=== PATIENT | male | born 1995 | race Caucasian/White ===

== ENCOUNTER 2019-01-07 04:37 | Emergency (ER) | payer SELFPAY ==
[2014-08-19 14:15] VITALS: Wt 81.6 kg
[~2019-01-07 04:37] MED LIST: BENZ30CR TP; DULO60CA56 PO; HYDR-4225 PO; MELO-205 PO; NAPR220C12 PO; PROM-110 PO
[2019-01-07 04:41] VITALS: BP 147/93
--- NOTE | 2019-01-07 04:53 | ER Report ---
History and Physical Time Seen By MD: 04:53 Hx. of Stated Complaint: pt wants to detox. uses meth. thinks he got a bad batch last night. doesn't think he's had any drugs that he knows of since last night HPI/ROS CHIEF COMPLAINT: wants to detox, meth use, thinks his house guests are trying to kill him HISTORY OF PRESENT ILLNESS: This is a 23 year old male. He uses meth. Has been using over the weekend for about 3 or 4 days. Has guests at his house that he thinks are trying to kill him and frame it as a suicide. He thinks they may have slipped him something else. He denies other drugs, but then admits to occasional marijuana. He smokes the meth. He uses tobacco. Will have several day binges of alcohol every few weeks, has been binging this weekend. He denies other health problems. He thinks something was slipped to him because he feels more high than usual, and knows how the amount of meth he used should make him feel. Allergies: Coded Allergies: haloperidol (Verified Allergy, Intermediate, 01/07/19) lockjaw Home Meds Discontinued Scripts Hydroxyzine Hcl (HYDROXYZINE HCL) 25 Mg Tablet, 1-2 TAB PO Q6H PRN for ANXIETY, #30 Prov:STAN TENORIO DO 10/26/17 Reviewed Nurses Notes: Yes Hx Smoking: Yes Smoking Status: Current: Every Day Smoker Exposure to Second Hand Smoke?: Yes Hx Substance Use Disorder: Yes (meth) Hx Alcohol Use: Yes (trying to quit) Constitutional Vital Sign - Last 24 Hours 01/07/19 04:41 Temp 98.5 Pulse 118 Resp 16 B/P (MAP) 147/93 Pulse Ox 95 O2 Delivery Room Air Physical Exam General Appearance: The patient is alert. No acute distress. Anxious. Eyes: Pupils are equal, round. Reactive to light. He has some injection, no pallor or icterus. Extraocular movements are intact. ENT: Mucous membranes are moist. Normal oral mucosa. Posterior oropharynx is normal. Neck: Supple and non tender. Respiratory: Lungs are clear to auscultation. Cardiovascular: Regular rate and rhythm. No murmurs, gallops or rubs. Normal capillary refill. Gastrointestinal: Abdomen is soft and non tender. Nondistended. Normal active bowel sounds. Neurological: Alert and oriented x3. Skin: Warm and dry. No rashes. Musculoskeletal: Extremities are nontender. No tenderness in palpation of the cervical, thoracic and lumbar spine. DIFFERENTIAL DIAGNOSIS: After history and physical exam, differential diagnosis was considered for patient wanting to detox from meth, concerned about being given some other medicine or drugs to try and kill him by house guests. Medical Decision Making Data Points Result Diagram: 01/07/19 0449 01/07/19 0449 Laboratory Hematology Test 01/07/19 04:40 01/07/19 04:49 Urine Color Sandra Urine Clarity Slightly-cloudy Urine pH 5.0 pH (4.8-9.5) Urine Specific Blach[place] 1.028 Urine Protein 100 mg/dL (NEGATIVE) Urine Glucose (UA) Negative mg/dL (NEGATIVE) Urine Ketones 80 mg/dL (NEGATIVE) Urine Blood Negative (NEGATIVE) Urine Nitrite Negative (NEGATIVE) Urine Bilirubin Negative (NEGATIVE) Urine Urobilinogen 2.0 mg/dL (0.2-1.9) Urine Leukocyte Esterase Negative (NEGATIVE) Urine RBC 1 /HPF (0-2/HPF) Urine WBC 2 /HPF (0-5/HPF) Urine Squamous Epithelial Cells Many /LPF (</=FEW) Urine Bacteria Few /HPF (NONE-FEW) Urine Hyaline Casts Many /LPF (NONE-FEW) Urine Granular Casts Few /LPF (NONE) Urine Mucus Few /HPF (NONE-FEW) Urine Opiates Screen Negative Urine Barbiturates Screen Negative Ur Tricyclic Antidepressants Screen Negative Urine Phencyclidine Screen Negative Urine Amphetamines Screen Positive Urine Benzodiazepines Screen Negative Urine Cocaine Screen Negative Urine Cannabinoids Screen Negative Red Blood Count 5.37 M/uL (4.00-5.60) Mean Corpuscular Volume 93.6 fL (80.0-96.0) Mean Corpuscular Hemoglobin 32.7 pg (26.0-33.0) Mean Corpuscular Hemoglobin Concent 35.0 g/dL (32.0-36.0) Red Cell Distribution Width 12.6 % (11.5-14.5) Mean Platelet Volume 7.7 fL (7.2-11.1) Neutrophils (%) (Auto) 80.2 % (39.4-72.5) Lymphocytes (%) (Auto) 7.8 % (17.6-49.6) Monocytes (%) (Auto) 9.7 % (4.1-12.4) Eosinophils (%) (Auto) 0.7 % (0.4-6.7) Basophils (%) (Auto) 1.6 % (0.3-1.4) Nucleated RBC Relative Count (auto) 0.1 /100WBC Neutrophils # (Auto) 8.3 K/uL (2.0-7.4) Lymphocytes # (Auto) 0.8 K/uL (1.3-3.6) Monocytes # (Auto) 1.0 K/uL (0.3-1.0) Eosinophils # (Auto) 0.1 K/uL (0.0-0.5) Basophils # (Auto) 0.2 K/uL (0.0-0.1) Nucleated RBC Absolute Count (auto) 0.01 K/uL Sodium Level 137 mmol/L (137-145) Potassium Level 3.3 mmol/L (3.5-5.0) Chloride Level 103 mmol/L (98-107) Carbon Dioxide Level 21 mmol/L (22-30) Blood Urea Nitrogen 15 mg/dl (9-21) Creatinine 0.90 mg/dl (0.66-1.25) Glomerular Filtration Rate Calc > 60.0 Random Glucose 138 mg/dl (75-110) Calcium Level 9.7 mg/dl (8.4-10.2) Magnesium Level 1.8 mg/dl (1.7-2.2) Total Bilirubin 4.0 mg/dl (0.2-1.3) Aspartate Amino Transf (AST/SGOT) 58 U/L (0-35) Alanine Aminotransferase (ALT/SGPT) 49 U/L (0-56) Alkaline Phosphatase 87 U/L (0-126) Total Protein 8.1 g/dl (6.3-8.2) Albumin 5.0 g/dl (3.5-5.0) Thyroid Stimulating Hormone (TSH) 1.61 uIU/ml (0.46-4.68) Salicylates Level < 10 mg/L Salicylate Last Dose Date unk Acetaminophen Level < 10 ug/ml Serum Alcohol < 10 mg/dl Chemistry Test 01/07/19 04:40 01/07/19 04:49 Urine Color Sandra Urine Clarity Slightly-cloudy Urine pH 5.0 pH (4.8-9.5) Urine Specific [place] 1.028 Urine Protein 100 mg/dL (NEGATIVE) Urine Glucose (UA) Negative mg/dL (NEGATIVE) Urine Ketones 80 mg/dL (NEGATIVE) Urine Blood Negative (NEGATIVE) Urine Nitrite Negative (NEGATIVE) Urine Bilirubin Negative (NEGATIVE) Urine Urobilinogen 2.0 mg/dL (0.2-1.9) Urine Leukocyte Esterase Negative (NEGATIVE) Urine RBC 1 /HPF (0-2/HPF) Urine WBC 2 /HPF (0-5/HPF) Urine Squamous Epithelial Cells Many /LPF (</=FEW) Urine Bacteria Few /HPF (NONE-FEW) Urine Hyaline Casts Many /LPF (NONE-FEW) Urine Granular Casts Few /LPF (NONE) Urine Mucus Few /HPF (NONE-FEW) Urine Opiates Screen Negative Urine Barbiturates Screen Negative Ur Tricyclic Antidepressants Screen Negative Urine Phencyclidine Screen Negative Urine Amphetamines Screen Positive Urine Benzodiazepines Screen Negative Urine Cocaine Screen Negative Urine Cannabinoids Screen Negative White Blood Count 10.4 k/uL (4.5-11.0) Red Blood Count 5.37 M/uL (4.00-5.60) Hemoglobin 17.6 g/dL (14.0-18.0) Hematocrit 50.3 % (42.0-52.0) Mean Corpuscular Volume 93.6 fL (80.0-96.0) Mean Corpuscular Hemoglobin 32.7 pg (26.0-33.0) Mean Corpuscular Hemoglobin Concent 35.0 g/dL (32.0-36.0) Red Cell Distribution Width 12.6 % (11.5-14.5) Platelet Count 236 K/uL (150-450) Mean Platelet Volume 7.7 fL (7.2-11.1) Neutrophils (%) (Auto) 80.2 % (39.4-72.5) Lymphocytes (%) (Auto) 7.8 % (17.6-49.6) Monocytes (%) (Auto) 9.7 % (4.1-12.4) Eosinophils (%) (Auto) 0.7 % (0.4-6.7) Basophils (%) (Auto) 1.6 % (0.3-1.4) Nucleated RBC Relative Count (auto) 0.1 /100WBC Neutrophils # (Auto) 8.3 K/uL (2.0-7.4) Lymphocytes # (Auto) 0.8 K/uL (1.3-3.6) Monocytes # (Auto) 1.0 K/uL (0.3-1.0) Eosinophils # (Auto) 0.1 K/uL (0.0-0.5) Basophils # (Auto) 0.2 K/uL (0.0-0.1) Nucleated RBC Absolute Count (auto) 0.01 K/uL Glomerular Filtration Rate Calc > 60.0 Calcium Level 9.7 mg/dl (8.4-10.2) Magnesium Level 1.8 mg/dl (1.7-2.2) Total Bilirubin 4.0 mg/dl (0.2-1.3) Aspartate Amino Transf (AST/SGOT) 58 U/L (0-35) Alanine Aminotransferase (ALT/SGPT) 49 U/L (0-56) Alkaline Phosphatase 87 U/L (0-126) Total Protein 8.1 g/dl (6.3-8.2) Albumin 5.0 g/dl (3.5-5.0) Thyroid Stimulating Hormone (TSH) 1.61 uIU/ml (0.46-4.68) Salicylates Level < 10 mg/L Salicylate Last Dose Date unk Acetaminophen Level < 10 ug/ml Serum Alcohol < 10 mg/dl Toxicology Test 01/07/19 04:40 01/07/19 04:49 Urine Opiates Screen Negative Urine Barbiturates Screen Negative Ur Tricyclic Antidepressants Screen Negative Urine Phencyclidine Screen Negative Urine Amphetamines Screen Positive Urine Benzodiazepines Screen Negative Urine Cocaine Screen Negative Urine Cannabinoids Screen Negative Salicylates Level < 10 mg/L Salicylate Last Dose Date unk Acetaminophen Level < 10 ug/ml Serum Alcohol < 10 mg/dl Urinalysis Test 01/07/19 04:40 Urine Color Sandra Urine Clarity Slightly-cloudy Urine pH 5.0 pH (4.8-9.5) Urine Specific [place] 1.028 Urine Protein 100 mg/dL (NEGATIVE) Urine Glucose (UA) Negative mg/dL (NEGATIVE) Urine Ketones 80 mg/dL (NEGATIVE) Urine Blood Negative (NEGATIVE) Urine Nitrite Negative (NEGATIVE) Urine Bilirubin Negative (NEGATIVE) Urine Urobilinogen 2.0 mg/dL (0.2-1.9) Urine Leukocyte Esterase Negative (NEGATIVE) Urine RBC 1 /HPF (0-2/HPF) Urine WBC 2 /HPF (0-5/HPF) Urine Squamous Epithelial Cells Many /LPF (</=FEW) Urine Bacteria Few /HPF (NONE-FEW) Urine Hyaline Casts Many /LPF (NONE-FEW) Urine Granular Casts Few /LPF (NONE) Urine Mucus Few /HPF (NONE-FEW) ED Course/Re-evaluation ED Course Labs unremarkable. Discussed this with the patient. Discussed the case with Dr. Bosch. Recommended outpatient resources for trying to stop using the meth. Decision to Disposition Date: Jan 07, 2019 Decision to Disposition Time: 06:05 Depart Departure Latest Vital Signs Vital Signs Date Time Temp Pulse Resp B/P (MAP) Pulse Ox O2 Delivery O2 Flow Rate FiO2 01/07/19 04:41 98.5 118 16 147/93 95 Room Air Impression: Primary Impression: Methamphetamine abuse Additional Impressions: Depression Anxiety Condition: Stable Disposition: HOME OR SELF-CARE New Scripts No Active Prescriptions or Reported Meds Patient Instructions: Methamphetamine Abuse (ED) Additional Instructions: Recommend follow-up with outpatient resources provided to stop abusing methamphetamine. If concerned about house guests and danger to yourself, would recommend having them leave. Further help from law enforcement if needed would need to be discussed with them. Problem Qualifiers Additional Impressions: Depression Depression Type: unspecified Qualified Codes: F32.9 - Major depressive disorder, single episode, unspecified GORDON VELEZ MD Jan 07, 2019 04:53
[2019-01-07 05:05] LABS: PLATELET COUNT, AUTOMATED 236 K/uL (150-450)
== END 2019-01-07 06:36 | disposition home or self-care (01) ==
LOC: ER 05:13
DX: F15.10 Other stimulant abuse, uncomplicated (principal); F10.10 Alcohol abuse, uncomplicated; F32.9 Major depressive disorder, single episode, unspecified; F41.9 Anxiety disorder, unspecified
CPT/HCPCS: 36415; 80305; 80320; 80329; 81001; 82040; 82247; 82310; 82374; 82435; 82565; 82947; 83735; 84075; 84132; 84155; 84295; 84443; 84450; 84460; 84520; 85025; 99283